=== PATIENT | female | born 1965 | race Caucasian/White ===

== ENCOUNTER 2016-12-15 06:50 | Day surgery (SDC) | payer OTHER ==
[2016-12-14 08:35] VITALS: BMI 28.3
[2016-12-15] MEDS ORDERED: MIDAZOLAM HCL 2 MG/2 ML SINGLE DOSE VIAL ONE (07:48)
[2016-12-15] MEDS ORDERED: PROPOFOL 20 ML ONE ×3 (07:50→09:07)
[2016-12-15] MEDS ORDERED: ROCURONIUM BROMIDE 50 MG/5 ML VIAL ONE (07:52)
[2016-12-15] MEDS ORDERED: DESFLURANE GAS 240 ML BOTTLE IH ONE (08:02)
[2016-12-15] MEDS ORDERED: ceFAZolin SODIUM 1 GM VIAL IVPB ONE (08:45)
[2016-12-15] MEDS ORDERED: LIDOCAINE 1%/EPI 1:100000 (50 ML MULTI DOSE VIAL) INF ONE (09:00)
[2016-12-15] MEDS ORDERED: HYDROmorphone HCL/PF 1 MG/ML VIAL (FOR PYXIS CHARGING ONLY) ONE (09:04)
[2016-12-15] MEDS ORDERED: DEXAMETHASONE SOD PHOSPHATE 4 MG/1 ML VIAL ONE ×2 (09:27)
[2016-12-15] MEDS ORDERED: LIDOCAINE HCL/PF 2% SDV 5ML VIAL ONE (09:27)
[2016-12-15] MEDS ORDERED: ceFAZolin SODIUM 1 GM VIAL ONE ×2 (09:28)
[2016-12-15] MEDS ORDERED: PHENYLEPHRINE HCL 10 MG/1 ML SINGLE DOSE VIAL ONE (09:29)
[2016-12-15] MEDS ORDERED: ACETAMINOPHEN 1000 MG/100 ML VIAL (NON FORMULARY) IVPB ONE (09:34)
[2016-12-15] MEDS ORDERED: MICROFIBRILLAR COLLAGEN 1 GM EACH TP ONE (10:10)
[2016-12-15] MEDS ORDERED: LACTATED RINGERS SOLUTION 1,000 ML IV SCH (11:00)
[2016-12-15] MEDS ORDERED: ONDANSETRON 4 MG/2 ML VIAL IVPUSH PRN (11:31)
[2016-12-15] MEDS ORDERED: oxyCODONE HCL 5 MG TABLET PO PRN (11:31)
[2016-12-15] MEDS ORDERED: oxyCODONE HCL 5 MG TABLET ONE (14:19)
[2016-12-15 14:34] VITALS: BP 104/65; PULSE 63; TEMP 97.7
--- NOTE | 2016-12-15 19:15 | OP ---
DATE OF OPERATION: 12/15/2016 SURGICAL ATTENDING: Sander Felix MD PREOPERATIVE DIAGNOSIS: Right thyroid nodule. POSTOPERATIVE DIAGNOSIS: Right thyroid nodule. ANESTHESIA: General endotracheal. PROCEDURE: 1. Right hemithyroidectomy. 2. Parathyroid reimplantation. 3. Neck ultrasound. DESCRIPTION OF PROCEDURE: The patient was taken into the operating room and placed in the supine position, endotracheally intubated. Nerve monitors were placed. Ultrasound was performed showing a large right thyroid nodule. There was a very small left posterior thyroid nodule with no suspicious characteristics. No lymphadenopathy was seen. The patient was then prepped and draped in the usual sterile fashion. Local anesthesia was administered. A 4.5-cm horizontal incision was made in the mid-neck crease and carried down through the subcutaneous tissues and platysma. Subplatysmal flaps were raised superiorly and inferiorly and flap hooks were placed for exposure. The median raphe was incised and the right-sided strap muscles were elevated off the thyroid gland. The recurrent laryngeal nerve and superior laryngeal nerves were identified, dissected, and preserved. Superior pole, inferior pole, and posterior attachments were transected. The isthmus was transected and the pyramidal lobe was included in the specimen. In this way, the right thyroid lobe and pyramidal lobe were removed, sent to Pathology for evaluation. Before sending to Pathology, the specimen was examined and a small parathyroid gland was seen in the right superior region. This was biopsy-proven as parathyroid tissue and reimplanted into the right sternocleidomastoid muscle and marked with a Prolene stitch. Hemostasis was achieved with electrocautery and Avitene. The wound was then closed in 3 layers. Sterile dressings were placed. The patient was then awakened, extubated and taken to recovery in stable condition. Dr. Felix, the attending surgeon, was present throughout the entire procedure. SANDER FELIX M.D. [id number]
--- NOTE | 2016-12-19 14:10 | PATH ---
Surgical Pathology Report Patient Name: TORRI ADRIAN [facility]. Rec. #: [id number] /Age/Gender: 1965 (Age: 51) / F Account: [id number] Location: [facility] SURGICAL Taken: 12/15/2016 Received: 12/15/2016 Reported: 12/19/2016 Physicians: Willis Hicks M.D. Specimen(s) Received A: RIGHT SUPERIOR PARATHYROID B: RIGHT THYROID, TOTAL LOBE Clinical History Multiple thyroid nodules Intraoperative Consult Diagnosis Right superior parathyroid: Parathyroid tissue identified, as per Dr. Dumont on 12/15/16 at 10:26 AM. Final Diagnosis A. PARATHYROID, RIGHT SUPERIOR, BIOPSY: PARATHYROID TISSUE. B. THYROID, RIGHT, HEMITHYROIDECTOMY: BENIGN THYROID TISSUE WITH DOMINANT ADENOMATOID NODULE (2.7 CM) WITH FOCAL HURTHLE CELL AND DEGENERATIVE CHANGES. Electronically Signed Burak Dumont M.D. Gross Description A. Received fresh, labeled "right superior parathyroid biopsy" is a 0.2 cm in greatest dimension mensah-pink soft tissue fragment. The specimen is entirely submitted for frozen section. The frozen section residue is entirely submitted in one cassette. B. Received in formalin, labeled "right thyroid lobe specimen" is a 25 g, 6.2 x 3.7 x 2.5 cm unoriented thyroid lobe. The outer surface is red-brown with focal defects. The specimen is inked black and serially sectioned. Sectioning reveals a 2.7 cm in greatest dimension focally hemorrhagic nodule. The nodule focally abuts the outer capsule but does not appear to invade through it. The remaining thyroid parenchyma is red-brown and beefy. Final Inspector sections are sequentially submitted in 10 cassettes with the nodule in cassettes 1-6. /12/15/2016 saudi/12/15/2016
--- NOTE | 2016-12-20 12:33 | SURG ---
Surgery Software Development Analyst Note Software Development Analyst: Rocio Kendall PA-C Date of Service: 12/15/16 Diagnosis: right thyroid nodule Procedure: right thyroidectomy/parathyroid implantation I was present for the entirety of the operative procedure. For further detail, please refer to operative report. Visit type - Case Type Case Type: Scheduled Admission - Emergency Emergency Visit: No - New patient This patient is new to me today: No - Critical Care Critical Care patient: No
== END 2016-12-15 14:54 | disposition home or self-care (01) ==
LOC: JASU-SURG 06:50
PROVIDERS: ATTEND Surgery
PROC: 0GTH0ZZ Resection of Right Thyroid Gland Lobe, Open Approach (ICD-10-PCS; 2016-12-15)
PROC: 0GSL0ZZ Reposition Right Superior Parathyroid Gland, Open Approach (ICD-10-PCS; principal; 2016-12-15 08:30)
DX: E04.2 Nontoxic multinodular goiter (principal)
CPT/HCPCS: 84703; 88305-TC; 88307-TC; 88331-TC; 94760